=== PATIENT | female | born 1965 | race Caucasian/White ===

== ENCOUNTER 2016-05-12 18:28 | Emergency (ER) | payer BC ==
[~2016-05-12] VITALS: Ht 170.2 cm; Wt 103.3 kg
[~2016-05-12 18:28] MED LIST: BENTYL10 MG PO; CIPRO500 MG PO; EXCEDRIN MIGRA1 EAC3 PO; LEXAPRO10 MG PO; MULTIVITAMIN1 EAC2 PO; OXYBUTYNIN CHLOR5 MG PO; PREVACID PO; Prevacid PO; SYNTHROID100 MCG PO; VENLAFAXINE HCL75 M3 PO
[2016-05-12 19:14] LABS: HEMATOCRIT 42.4 % (36.0-46.0); MCH 28.3 PG (29.0-34.0); MCHC 32.1 G/DL (30.0-36.0); MCV 88.3 FL (83-99); MEAN PLAT.VOLUME 10.7 uM^3 (9.5-12.4); PLATELET COUNT 222 K/uL (156-360); RBC DIS.WIDTH-CV 13.4 % (11.8-14.6); RBC DIS.WIDTH-SD 42.8 % (39-53); WHITE BLOOD COUNT 8.1 K/uL (4.1-10.2)
[2016-05-12 19:25] LABS: CHLORIDE 107 mEq/L (99-109); POTASSIUM 4.4 mEq/L (3.7-5.4); SODIUM 142 mEq/L (136-147)
[2016-05-12 19:27] LABS: GLUCOSE 90 mg/dL (70-99)
[2016-05-12 19:28] LABS: ANION GAP 9 MEQ/L (2-14)
[2016-05-12 19:31] LABS: GFR ESTIMATE (CALCULATED) > 59 mL/min/; UREA NITROGEN (BUN) 11 mg/dL (9-23)
[2016-05-12 19:33] LABS: TROP-I INTERPRETATION NEGATIVE; TROPONIN-I < 0.01 ng/mL (0.0-0.30)
[2016-05-12] MEDS ORDERED: EFFEXOR XR150 MG PO (21:39)
[2016-05-12 21:40] LABS: TROP-I INTERPRETATION NEGATIVE; TROPONIN-I < 0.01 ng/mL (0.0-0.30)
[2016-05-12] MEDS ORDERED: BUTALB-APAP-CA1 EACH PO (21:41)
[2016-05-12] MEDS ORDERED: ELAVIL10 MG PO (21:41)
[2016-05-12] MEDS ORDERED: ASPIR 8181 M1 PO (21:42)
[2016-05-12 23:09] LABS: D-DIMER ELISA 0.45 mg/L FEU (< 0.57)
[2016-05-13 00:07] VITALS: BP 131/75
== END 2016-05-13 00:17 | disposition home or self-care (01) ==
LOC: EME 18:28
PROVIDERS: Nurse Practitioner Family
DX: R07.9 Chest pain, unspecified (principal); K21.9 Gastro-esophageal reflux disease without esophagitis
CPT/HCPCS: 71020; 80048; 84484; 85027; 85379; 93005; 99281; 99285

== ENCOUNTER 2016-06-02 14:07 | Emergency (ER) | payer BC ==
[~2016-06-02] VITALS: Ht 170.2 cm; Wt 104.2 kg
[~2016-06-02 14:07] MED LIST changes: +ASPIR 8181 M1 PO; +BUTALB-APAP-CA1 EACH PO; +EFFEXOR XR150 MG PO; +ELAVIL10 MG PO
[2016-06-02 15:49] LABS: MCH 28.8 PG (29.0-34.0); MCHC 32.4 G/DL (30.0-36.0); MEAN PLAT.VOLUME 10.8 uM^3 (9.5-12.4); PLATELET COUNT 216 K/uL (156-360); RBC DIS.WIDTH-CV 13.6 % (11.8-14.6); RBC DIS.WIDTH-SD 43.8 % (39-53); RED BLOOD COUNT 4.72 M/uL (3.80-5.20); WHITE BLOOD COUNT 6.1 K/uL (4.1-10.2)
[2016-06-02 15:59] LABS: CHLORIDE 107 mEq/L (99-109); POTASSIUM 4.1 mEq/L (3.7-5.4); SODIUM 142 mEq/L (136-147)
[2016-06-02 16:00] LABS: GLUCOSE 86 mg/dL (70-99)
[2016-06-02 16:02] LABS: ANION GAP 10 MEQ/L (2-14)
[2016-06-02 16:04] LABS: GFR ESTIMATE (CALCULATED) > 59 mL/min/
[2016-06-02 16:05] LABS: UREA NITROGEN (BUN) 8 mg/dL (9-23)
[2016-06-02 16:10] LABS: TROP-I INTERPRETATION NEGATIVE; TROPONIN-I < 0.01 ng/mL (0.0-0.30)
[2016-06-02 18:21] LABS: TROP-I INTERPRETATION NEGATIVE; TROPONIN-I < 0.01 ng/mL (0.0-0.30)
[2016-06-02 18:48] LABS: D-DIMER ELISA 0.39 mg/L FEU (< 0.57)
[2016-06-02 19:53] VITALS: BP 133/86
== END 2016-06-02 19:56 | disposition home or self-care (01) ==
LOC: EME 14:07
PROVIDERS: Nurse Practitioner Family
DX: R07.89 Other chest pain (principal); K21.9 Gastro-esophageal reflux disease without esophagitis
CPT/HCPCS: 71020; 80048; 84484; 85027; 85379; 93005; 99281; 99284

== ENCOUNTER 2017-12-06 11:16 | Inpatient (IN) | payer OTHER ==
[~2017-12-06] VITALS: Ht 170.2 cm; Wt 109.5 kg
[2017-12-06 11:53] LABS: HEMATOCRIT 44.2 % (36.0-46.0); HEMOGLOBIN 14.4 G/DL (11.9-15.5); MCH 28.2 PG (29.0-34.0); MCHC 32.6 G/DL (30.0-36.0); MCV 86.5 FL (83-99); PLATELET COUNT 270 K/uL (156-360); RBC DIS.WIDTH-CV 13.5 % (11.8-14.6); RBC DIS.WIDTH-SD 42.2 % (39-53); RED BLOOD COUNT 5.11 M/uL (3.80-5.20); WHITE BLOOD COUNT 11.9 K/uL (4.1-10.2)
[2017-12-06 12:05] LABS: CHLORIDE 102 mEq/L (99-109); POTASSIUM 4.1 mEq/L (3.7-5.4); SODIUM 137 mEq/L (136-147)
[2017-12-06 12:06] LABS: GLUCOSE 116 mg/dL (70-99)
[2017-12-06 12:10] LABS: CREATININE 0.9 mg/dL (0.6-1.3); GFR ESTIMATE (CALCULATED) > 59 mL/min/
[2017-12-06 12:11] LABS: UREA NITROGEN (BUN) 7 mg/dL (9-23)
[2017-12-06 12:29] LABS: ALBUMIN 4.5 g/dL (3.2-4.8)
[2017-12-06 12:32] LABS: TOTAL PROTEIN 8.1 g/dL (6.4-8.3)
[2017-12-06 12:34] LABS: TOTAL BILIRUBIN 0.6 mg/dL (0.0-1.0)
[2017-12-06 12:35] LABS: ALKALINE PHOSPHATASE 68 IU/L (3-129)
[2017-12-06 12:37] LABS: AST (GOT) 22 IU/L (2-34)
[2017-12-06 12:38] LABS: ALT (GPT) 20 IU/L (3-49); DIRECT BILIRUBIN 0.3 mg/dL (0.0-0.3)
[2017-12-06 12:39] LABS: LIPASE 18 U/L (1.0-51.0)
[2017-12-06 12:44] LABS: QUANTITATIVE HCG < 4.0 MIU/ML
[2017-12-06] MEDS ORDERED: VENLAFAXINE HC150 M1 PO (16:00)
[2017-12-06] MEDS ORDERED: BIOTIN1000 MCG PO (16:01)
[2017-12-06] MEDS ORDERED: OXYBUTYNIN CHLOR5 MG PO (16:02)
[2017-12-06] MEDS ORDERED: NORTRIPTYLINE H25 MG PO (16:03)
[2017-12-06 16:46] VITALS: BP 138/83
[2017-12-06 17:12] VITALS: BP 139/83
[2017-12-06 20:08] VITALS: BP 143/84
[2017-12-06 20:29] LABS: HEMATOCRIT 43.9 % (36.0-46.0); HEMOGLOBIN 14.1 G/DL (11.9-15.5); MCV 87.6 FL (83-99)
[2017-12-07] VITALS (7 sets, daily range): BP systolic 110–137; BP diastolic 55–73
[2017-12-07 05:12] LABS: INTER. NORMALIZED RATIO 1.2
[2017-12-07 05:15] LABS: PTT 27.2 SEC (25-37)
[2017-12-07 07:39] LABS: HEMATOCRIT 41.7 % (36.0-46.0); HEMOGLOBIN 13.2 G/DL (11.9-15.5); MCV 87.8 FL (83-99)
[2017-12-07 10:37] LABS: HEMATOCRIT 42.8 % (36.0-46.0); HEMOGLOBIN 13.8 G/DL (11.9-15.5); MCV 87.2 FL (83-99)
[2017-12-07 16:37] LABS: HEMOGLOBIN 13.4 G/DL (11.9-15.5); MCV 87.3 FL (83-99)
[2017-12-07 17:09] LABS: APPEARANCE CLEAR ((CLEAR)); BILIRUBIN NEGATIVE; BLOOD NEGATIVE; COLOR STRAW ((YELLOW)); GLUCOSE (STRIP) NEGATIVE; KETONES 5; LEUKOCYTES NEGATIVE; NITRITE NEGATIVE; PROTEIN (STRIP) NEGATIVE; SPECIFIC GRAVITY 1.006 (1.000-1.030); UCUL ADDED? NO; UROBILINOGEN 0.2 MG/DL (0.2-1.0)
[2017-12-07 22:31] LABS: HEMATOCRIT 40.9 % (36.0-46.0); HEMOGLOBIN 13.2 G/DL (11.9-15.5); MCV 87.6 FL (83-99)
[2017-12-08 03:49] VITALS: BP 108/65
[2017-12-08 08:52] VITALS: BP 114/62
[2017-12-08 12:58] VITALS: BP 115/71
== END 2017-12-08 14:03 | disposition home or self-care (01) | DRG 377 ==
LOC: EME 11:16 → EDOF 16:04 → 4SOUTH 16:04 → ENRESERV 16:05 → 4SOUTH 16:42
PROVIDERS: Hospitalist; Physician Assistant
DX: K92.1 Melena (principal); K55.039 Acute (reversible) ischemia of large intestine, extent unspecified; K51.50 Left sided colitis without complications; F33.9 Major depressive disorder, recurrent, unspecified; K59.00 Constipation, unspecified; K21.9 Gastro-esophageal reflux disease without esophagitis; F41.9 Anxiety disorder, unspecified; G89.29 Other chronic pain; E66.9 Obesity, unspecified; Z79.82 Long term (current) use of aspirin; Z88.1 Allergy status to other antibiotic agents; Z90.710 Acquired absence of both cervix and uterus; Z68.37 Body mass index [BMI] 37.0-37.9, adult; Z80.3 Family history of malignant neoplasm of breast
CPT/HCPCS: 74177; 80048; 80076; 81003; 83605; 83630; 83690; 84702; 85014; 85018; 85027; 85610; 85730; 86850; 86900; 86901; 87177; 87493; 87506; 99281; 99283; G0378; J0295; J2405; J3010; J7030; J7050